=== PATIENT | male | born 1975 | race Caucasian/White ===

== ENCOUNTER 2019-10-17 04:53 | Emergency (ER) | payer BC ==
[2019-10-17] MEDS ORDERED: Ketorolac Tromethamine 30 MG/ML VIAL ONE (05:46)
== END 2019-10-17 06:07 | disposition home or self-care (01) ==
LOC: EDSEX 04:53 → ERS 04:53
DX: M79.672 Pain in left foot (principal)
CPT/HCPCS: 36415; 80048; 85025; 86140; 96372; 99283; J1885

== ENCOUNTER → 2019-11-20 | Day surgery (SDC) | payer BC ==
[~2019-11-20] MED LIST: Heparin 1,000 UNITS/ML VIAL ONE
--- NOTE | 2019-11-20 09:55 | SPC ---
Exam: Left upper extremity PICC line with ultrasound placement HISTORY: Infection. Long-term IV antibiotics are required Exposure: 0.2 minutes, 1223 mg/sq cm FINDINGS: Successful left upper kidney PICC line placement with ultrasound guidance. A single-lumen 4 Iraqi catheter terminates in the right atrium. 45 cm trim length TECHNIQUE: Consent obtained to perform a left upper tree PICC line with ultrasound guidance. Left arm was prepped and draped in a sterile fashion. 1% lidocaine, buffered with sodium bicarbonate was used for local anesthesia. Under ultrasound guidance, micropuncture needle was used to cannulate the brachial vein. A 0.018 guidewire was advanced through the needle to level of the superior vena cava. Wire was advanced into the inferior vena cava to document venous access. Wire was subsequently pulled back to the right atrium. Tract dilatation was performed. Single-lumen 4 Iraqi catheter was advanced over the wire. 45 cm trim length. Catheter does flush and aspirate without difficulty IMPRESSION: Successful left upper extremity PICC line placement with ultrasound guidance
== END ==
LOC: SPEC 08:28
PROVIDERS: ATTEND Internal Medicine Infectious Disease
PROC: 02H633Z Insertion of Infusion Device into Right Atrium, Percutaneous Approach (ICD-10-PCS; principal; 2019-11-20)
PROC: B548ZZA Ultrasonography of Superior Vena Cava, Guidance (ICD-10-PCS; principal; 2019-11-20)
DX: T81.49XA Infection following a procedure, other surgical site, initial encounter (principal); L97.521 Non-pressure chronic ulcer of other part of left foot limited to breakdown of skin; M19.90 Unspecified osteoarthritis, unspecified site; Z79.2 Long term (current) use of antibiotics; Z79.899 Other long term (current) drug therapy; Z98.890 Other specified postprocedural states
CPT/HCPCS: 36569; C1751; J1644